=== PATIENT | female | born 1955 | race Two or more races ===

== ENCOUNTER 2017-09-13 16:32 | Emergency (ER) | payer MEDICAID ==
[~2017-09-13] VITALS: Ht 154.9 cm; Wt 68.0 kg
[2017-09-13] MEDS ORDERED: INSU100V3 SUBCUT (16:40)
[2017-09-13] MEDS ORDERED: HYDR12.529 PO (16:40)
[2017-09-13] MEDS ORDERED: ATEN-42 PO (16:40)
[2017-09-13] MEDS ORDERED: insulin lantus (16:40)
[2017-09-13] MEDS: KETOROLAC 15MG/ML VIAL IM SCH ×2 (23:17→23:29)
[2017-09-13 23:50] VITALS: BP 131/74
== END 2017-09-13 23:50 | disposition home or self-care (01) ==
LOC: ER 17:30
DX: M54.42 Lumbago with sciatica, left side (principal); M54.41 Lumbago with sciatica, right side; F17.200 Nicotine dependence, unspecified, uncomplicated; E11.9 Type 2 diabetes mellitus without complications; I10 Essential (primary) hypertension; W01.0XXA Fall on same level from slipping, tripping and stumbling without subsequent striking against object, initial encounter; Y93.89 Activity, other specified; Y99.8 Other external cause status; Y92.89 Other specified places as the place of occurrence of the external cause; Z79.4 Long term (current) use of insulin; Z88.5 Allergy status to narcotic agent
CPT/HCPCS: 96372; 99284; J1885; Z7610